=== PATIENT | male | born 1935 | race Caucasian/White ===

== ENCOUNTER 2020-05-25 16:25 | Emergency (ER) | payer MEDICARE ==
[~2020-05-25] VITALS: Ht 177.8 cm; Wt 72.6 kg
[2020-05-25 17:11] LABS: ABSOLUTE BASOPHILS 0.1 thou/uL (0.0-0.2); ABSOLUTE EOSINOPHILS 0.1 thou/uL (0.0-0.7); ABSOLUTE LYMPHOCYTES 1.7 thou/uL (0.8-5.3); ABSOLUTE MONOCYTES 0.6 thou/uL (0.0-1.2); ABSOLUTE NEUTROPHILS 3.5 thou/uL (1.6-8.1); BASOPHILS 1.1 %; EOSINOPHILS 1.6 %; HEMOGLOBIN 16.9 gm/dL (14.0-18.0); LYMPHOCYTES 29.1 %; MCH 31.6 pg (26.0-34.0); MCHC 35.2 g/dL (28.0-37.0); MCV 89.9 fL (80.0-100.0); MONOCYTES 10.1 %; MPV 7.7 fl. (7.2-11.1); NUCLEATED RBCS 0 /100WBC; PLATELET COUNT* 220 thou/uL (150-400); POLYS 58.1 %; RBC 5.34 mil/uL (4.50-6.00); RDW-CV 13.5 % (10.5-14.5)
[2020-05-25 17:24] LABS: CALCIUM 8.7 mg/dL (8.5-10.1); CREATININE 1.2 mg/dL (0.6-1.3); POTASSIUM 3.8 mmol/L (3.5-5.1)
[2020-05-25 17:28] LABS: ALBUMIN 3.9 g/dL (3.4-5.0); TOTAL BILIRUBIN 0.6 mg/dL (<0.1-1.0); TOTAL PROTEIN 7.6 g/dL (6.4-8.2)
[2020-05-25 18:22] VITALS: BP 189/84
--- NOTE | 2020-05-26 10:16 | EKG ---
[place] [address] ELECTROCARDIOGRAM REPORT Name: JUAN ALDRIDGE Room: 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[employer] [facility] : 1935 Requested By: Fernando Gómez Order Number: [id number] MD: Lawrence Graham Measurements Intervals Watson Rate: 61 P: 68 RI: 159 QRS: -32 QRSD: 100 T: 43 QT: 405 QTc: 408 Interpretive Statements Sinus rhythm Probable left atrial enlargement Left axis deviation Abnormal R-wave progression, early transition Baseline wander in lead(s) V3 No previous ECG available for comparison Electronically Signed On 05-26-2020 10:16:38 CDT by Lawrence Graham [email or web address] <ELECTRONICALLY SIGNED> By: Lawrence Graham MD, FAC 05/26/20 1016 1655 1655 Lawrence Graham MD, [facility] /EPI
== END 2020-05-25 18:23 | disposition home or self-care (01) ==
LOC: M.ERS 16:25
PROVIDERS: Physician Assistant
DX: I10 Essential (primary) hypertension (principal); Z88.0 Allergy status to penicillin